=== PATIENT | female | born 1995 | race Caucasian/White ===

== ENCOUNTER 2023-06-17 07:38 | Emergency (ER) | payer BC, OTHER ==
[2023-06-17 07:48] VITALS: BP 132/80; PULSE 99; RESP 16; TEMP 98.8; BMI 28.3
[2023-06-17 08:43] LABS: HEMATOCRIT 40.8 % (32.4-45.2); HEMOGLOBIN 14.2 G/dL (10.7-15.3); MCH 30.8 pg (25.7-33.7); MCHC 34.9 g/dl (32.0-36.0); MEAN CELL VOLUME 88.2 fl (80-96); MEAN PLT VOLUME 7.8 fl (7.5-11.1); PLATELET COUNT 244.2 10^3/uL (134-434); RBC 4.63 10^6/uL (3.60-5.2); RDW 13.4 % (11.6-15.6); WHITE BLOOD COUNT 5.7 10^3/uL (4.0-10.8)
[2023-06-17 08:53] LABS: ALBUMIN 4.7 g/dl (3.4-5.0); ALK PHOS 60 U/L (45-117); ANION GAP 9 mmol/L (4-13); BILIRUBIN,TOTAL 0.5 mg/dl (0.2-1); CALCIUM 9.7 mg/dl (8.5-10.1); CHLORIDE 105 mmol/L (98-107); CO2 24 mmol/L (21-32); CREATININE 0.7 mg/dl (0.6-1.3); GLUCOSE,RANDOM 108 mg/dl (74-106); POTASSIUM 3.8 mmol/L (3.5-5.1); SGOT/AST 23 U/L (15-37); SGPT/ALT 36 U/L (7-52); SODIUM 138 mmol/L (136-145); TOT PROT 6.7 g/dl (6.4-8.2)
[2023-06-17 09:19] LABS: PLATELET ESTIMATE ADEQUATE
[2023-06-17 09:58] LABS: N-TERMINAL BNP 10.1 pg/ml (5-125)
== END 2023-06-17 09:32 | disposition home or self-care (01) ==
LOC: FER 07:38
DX: R07.89 Other chest pain (principal)
CPT/HCPCS: 36415; 71046-TC-FY; 80053; 81025; 83880; 84484; 85027; 85379; 93005; 99285-25

== ENCOUNTER 2023-07-10 20:26 | Emergency (ER) | payer BC, OTHER ==
[2023-07-10 20:52] VITALS: BP 127/72; PULSE 91; RESP 16; TEMP 98.4; BMI 27.4
== END 2023-07-10 22:27 | disposition home or self-care (01) ==
LOC: FER 20:26
DX: R00.2 Palpitations (principal); F41.9 Anxiety disorder, unspecified; Z20.822 Contact with and (suspected) exposure to COVID-19
CPT/HCPCS: 0241U-QW; 36415; 84484; 93005; 99284-25